=== PATIENT | female | born 1995 | race American Indian/Alaskan Native ===

== ENCOUNTER 2018-05-17 10:13 | Emergency (ER) | payer SELFPAY ==
[2018-05-17 10:45] VITALS: BP 119/49
--- NOTE | 2018-05-17 11:35 | XRay Report ---
RIGHT KNEE, 3 views: History: Pain, edema. The bony architecture is intact without evidence of fracture or dislocation. Bipartite patella is noted. No significant soft tissue abnormality is seen. IMPRESSION: Normal right knee.
--- NOTE | 2018-05-17 11:55 | Emergency Department Report ---
ED Lower Extremity HPI - General Chief Complaint: Extremity Problem,Nontraumatic Stated Complaint: KNEE PAIN Time Seen by Provider: 05/17/18 11:47 Source: patient Mode of arrival: Ambulatory Limitations: No Limitations - History of Present Illness Initial Comments: Ms. Kwan is a 23-year-old female with history of right knee pain and swelling for the past year. She was treated for a "ligament" at outside hospital ER one year ago. Placed in knee immobilizer and crutches. Since that time she had intermittent swelling with pain. MD Complaint: knee injury -: year(s) Injury: Knee: Right Severity: moderate - Related Data Allergies Allergy/AdvReac Type Severity Reaction Status Date / Time No Known Allergies Allergy Unverified 05/17/18 10:46 ED Review of Systems ROS: Stated complaint: KNEE PAIN Other details as noted in HPI Neurological: denies: numbness, paresthesias ED Past Medical Hx - Past Medical History Previous Medical History?: No - Surgical History Past Surgical History?: No - Social History Smoking Status: Never Smoker ED Physical Exam - General Limitations: No Limitations General appearance: alert, in no apparent distress - Head Head exam: Present: atraumatic, normocephalic - Expanded Lower Extremity Exam Right Knee exam: Present: full ROM, tenderness, swelling. Absent: abrasion, laceration, ecchymosis, deformity, crepidus, dislocation, erythema, effusion - Neurological Exam Neurological exam: Present: alert, oriented X3 - Psychiatric Psychiatric exam: Present: normal affect, normal mood ED Course Vital Signs 05/17/18 10:43 Temperature 98.3 F Pulse Rate 74 Respiratory 16 Rate Blood Pressure 119/49 O2 Sat by Pulse 100 Oximetry ED Lower Extremity MDM - Medical Decision Making Chronic knee pain since previous injury. Suspect meniscus defect, recommended RICE therapy Referred to orthopedic surgeon and outside clinic Critical care attestation.: If time is entered above; I have spent that time in minutes in the direct care of this critically ill patient, excluding procedure time. ED Disposition Clinical Impression: Meniscus degeneration, Chronic pain of right knee Disposition: DC-01 TO HOME OR SELFCARE Is pt being admited?: No Does the pt Need Aspirin: No Condition: Stable Instructions: Knee Pain (ED), RICE Therapy (ED) Referrals: EVERT RUVALCABA MD [Staff Physician] - 3-5 Days [facility] [Outside] - 3-5 Days
== END 2018-05-17 12:01 | disposition home or self-care (01) ==
LOC: ED 10:13
DX: M23.306 Other meniscus derangements, unspecified meniscus, right knee (principal); G89.29 Other chronic pain
CPT/HCPCS: 99283

== ENCOUNTER 2020-12-16 12:52 | Emergency (ER) | payer OTHER ==
[2020-12-16 13:55] VITALS: BP 121/82
[2020-12-16] MEDS ORDERED: LIDOCAINE (1%) 10 MG/1 ML VIAL 20 ML MDV INFILTRATI ONE (14:21)
[2020-12-16] MEDS ORDERED: TETANUS,DIPH,PERTUSS(ACELL) VACCINE 0.5 ML SYRINGE IM ONE ×2 (14:22→17:07)
--- NOTE | 2020-12-16 14:23 | Emergency Department Report ---
Upper Extremity - HPI Chief Complaint: Skin/Abscess/Foreign Body Stated Complaint: HAND INJURY LT Time Seen by Provider: 12/16/20 14:05 Upper Extremity: Left Thumb Other History: 25-year-old female presents to the ER today complaints of a wooden splinter to her left fifth finger. She states that she was trying to open a wooden cabinet at home with her finger struck the door and resulted in a splint underneath the nail of her left fifth finger. She is left-hand dominant. She states that she went about 2-3 urgent care today try to have it removed but they keep referring her to the ER. She is not sure when her last tetanus vaccine was. ED Review of Systems ROS: Stated complaint: HAND INJURY LT Other details as noted in HPI Comment: All other systems reviewed and negative Musculoskeletal: arthralgia Skin: other (Foreign body left fifth finger) ED Past Medical Hx - Past Medical History Previous Medical History?: No - Social History Smoking Status: Never Smoker Substance Use Type: None - Medications Home Medications: Home Medications Medication Instructions Recorded Confirmed Last Taken Type Ibuprofen [Motrin] 600 mg PO Q8H PRN #30 tablet 12/16/20 Unknown Rx Upper Extremity Exam - Exam General: Vital signs noted. No distress. Alert and acting appropriately. Head and Torso: No HEENT Abnormality, No Chest/Lungs Abnormality Shoulder Exam: Yes Normal Range of Motion in Shoulder Wrist: Yes Normal ROM in Wrist Hand: Yes Digit Tenderness (Distal left fifth finger; there is a small wooden splinter noted underneath the distal end nail of the left fifth finger), Yes Normal ROM in Digit(s), No Hand Tenderness, No Hand Deformity, No Digit(s) Deformity, No Tendon Dysfunction CMS Exam: Yes Normal Distal Pulses, Yes Normal Capillary Refill, Yes Normal Distal Sensation, No Broken Skin ED Course Vital Signs 12/16/20 12/16/20 12/16/20 13:39 13:40 13:48 Temperature 98.4 F Pulse Rate 74 97 H Respiratory 18 Rate Blood Pressure 121/82 O2 Sat by Pulse 100 100 Oximetry ED Medical Decision Making - Radiology Data Radiology results: report reviewed Patient: ALBINO GRANT MR#: [id number] : 1995 Acct:[id number] Age/Sex: 25 / F ADM Date: 12/16/20 Loc: ED Attending Dr: Ordering Physician: KVNG APARICIO Date of Service: 12/16/20 Procedure(s): XR finger(s) 2+V LT Accession Number(s): [id number] cc: KVNG APARICIO Fluoro Time In Minutes: Left fingers 3 views INDICATION: Left finger pain following injury IMPRESSION: No foreign body appreciated. No fracture or subluxation identified. Signer Name: Terry Lua MD Signed: 12/16/2020 4:43 PM Workstation Name: [id number] Transcribed By: Dictated By: Terry Lua MD Electronically Authenticated By: Terry Lua MD Signed Date/Time: 12/16/201642 DD/ 41 TD/TT: Critical care attestation.: If time is entered above; I have spent that time in minutes in the direct care of this critically ill patient, excluding procedure time. ED Disposition Clinical Impression: Splinter of finger Disposition: DC-01 TO HOME OR SELFCARE Is pt being admited?: No Does the pt Need Aspirin: No Condition: Stable Instructions: Skin Foreign Body, Sliver Removal, Care After Additional Instructions: You can clean with soap and water, and apply small amount of neosporin after cleaning. Do this daily few days. Follow up PCP as needed. Return to ED if worse. Prescriptions: Ibuprofen [Motrin] 600 mg PO Q8H PRN #30 tablet PRN Reason: Pain Referrals: LUC HAYNES MD [Staff Physician] - 3-5 Days Time of Disposition: 17:05
--- NOTE | 2020-12-16 16:48 | XRay Report ---
Left fingers 3 views INDICATION: Left finger pain following injury IMPRESSION: No foreign body appreciated. No fracture or subluxation identified. Signer Name: Terry uLa MD Signed: 12/16/2020 4:43 PM Workstation Name: [id number]
== END 2020-12-16 17:14 | disposition home or self-care (01) ==
LOC: ED 12:52
DX: S69.92XA Unspecified injury of left wrist, hand and finger(s), initial encounter (principal); Z79.1 Long term (current) use of non-steroidal anti-inflammatories (NSAID); X58.XXXA Exposure to other specified factors, initial encounter; Y93.89 Activity, other specified; Y92.89 Other specified places as the place of occurrence of the external cause; Y99.8 Other external cause status
CPT/HCPCS: 90471; 90715